=== PATIENT | male | born 1970 | race Caucasian/White ===

== ENCOUNTER 2017-09-23 05:09 | Inpatient (IN) | payer OTHER ==
[2017-09-23] MEDS: NS 1,000 ML IV ×4 (06:00→19:30)
[2017-09-23] MEDS: ONDANSETRON 4MG/2ML VIAL (J2405) IV (06:00)
[2017-09-23] MEDS: IPRATROPIUM 0.5MG/ALBUTEROL 2.5MG INH SOL UD 3ML (DUONEB)(J7620) NEB (06:12)
[2017-09-23 06:35] LABS: MEAN CORPUSCULAR HEMOGLOBIN 30.5 pg (27.0-33.0); MEAN CORPUSCULAR HGB CONC 34.4 g/dl (32.0-36.5); MEAN CORPUSCULAR VOLUME 88.6 fl (80.0-96.0); PLATELET COUNT, AUTOMATED 103 10^3/uL (150-450); RED CELL DISTRIBUTION WIDTH 14.5 % (11.5-14.5)
[2017-09-23 06:36] LABS: ADD MANUAL DIFFER YES; ATYP LYMPH POS FLAG; DIFF SLIDE NUMBER 97; POSITIVE MORPH POS FLAG
[2017-09-23 07:02] LABS: ALBUMIN 2.4 GM/DL (3.2-5.2); ALKALINE PHOSPHATASE 50 U/L (45-117); ALT/SGPT 52 U/L (12-78); AST/SGOT 140 U/L (7-37); BILIRUBIN,DIRECT 0.2 MG/DL (0.0-0.2); BILIRUBIN,TOTAL 0.4 MG/DL (0.2-1.0); BLOOD UREA NITROGEN 10 MG/DL (7-18); CALCIUM LEVEL 7.2 MG/DL (8.5-10.1); CARBON DIOXIDE LEVEL 25 MEQ/L (21-32); CHLORIDE LEVEL 99 MEQ/L (98-107); CREATININE FOR GFR 0.36 MG/DL (0.70-1.30); GLUCOSE, FASTING 97 MG/DL (70-105); POTASSIUM SERUM 3.6 MEQ/L (3.5-5.1); SODIUM LEVEL 133 MEQ/L (136-145); TOTAL PROTEIN 7.6 GM/DL (6.4-8.2)
[2017-09-23 07:04] LABS: LACTIC ACID SEPSIS PROTOCOL 1.8 MMOL/L (0.4-2.0)
[2017-09-23 07:10] LABS: GIANT PLATELETS 1+
[2017-09-23] MEDS ORDERED: ISOVUE-370 76% 100ML VIAL (Q9967) As Ordered (07:28)
[2017-09-23] MEDS: ACETAMINOPHEN TAB 650MG DOSE (2X325MG) PO (07:45)
[2017-09-23] MEDS: CEFTRIAXONE SOD 2 GM in APPROPRIATE DILUENT 1 EA IV (08:15)
[2017-09-23] MEDS: AZITHROMYCIN INJ 500 MG, VIAL MATE ADAPTER 1 EACH in D5W 250 ML IV (08:15)
[2017-09-23 08:21] LABS: KETONE, URINE AUTO RFX NEGATIVE (NEGATIVE); LEUKOCYTE ESTERASE UR AUTO RFX NEGATIVE (NEGATIVE); MUCUS, URINE RFX LARGE (NEGATIVE); NITRITE, URINE AUTO RFX NEGATIVE (NEGATIVE); RBC, URINE AUTO RFX 4 /HPF (0-3); SPECIFIC GRAVITY UR AUTO RFX 1.024 (1.002-1.035); SQUAM EPITHELIAL CELL UR AURFX 0 /HPF (0-6); WBC, URINE AUTO RFX 4 /HPF (0-3)
[2017-09-23 08:35] LABS: ANION GAP 9 MEQ/L (8-16)
[2017-09-23 08:36] LABS: ALBUMIN/GLOBULIN RATIO 0.96 (1.00-1.93)
[2017-09-23] MEDS: ENOXAPARIN 40 MG/0.4 ML SYRINGE (J1650) SC (09:00)
[2017-09-23] MEDS ORDERED: ACETAMINOPHEN TAB 650MG DOSE (2X325MG) PO (10:00)
[2017-09-23] MEDS: diphenhydrAMINE INJ 50MG/ML VIAL (J1200) IV (10:00)
[2017-09-23] MEDS ORDERED: ONDANSETRON 4MG/2ML VIAL (J2405) IV (10:00)
[2017-09-23] MEDS ORDERED: diphenhydrAMINE INJ 50MG/ML VIAL (J1200) IV (10:00)
[2017-09-23] MEDS ORDERED: ENOXAPARIN 60 MG/0.6 ML SYR (J1650) As Ordered (12:58)
[2017-09-23] MEDS: methylPREDNISolone INJ 40 MG/1 ML VIAL (J2920) IV ×2 (13:23→23:12)
[2017-09-23] MEDS: PIPERACILLIN/TAZOBACTAM SOD 4.5 GM in APPROPRIATE DILUENT 1 EA IV ×3 (13:23→23:12)
[2017-09-23] MEDS: NYSTATIN 100,000 UNITS/GM TOPICAL PWD 15 GM TOP (21:59)
[2017-09-24] MEDS ORDERED: ALBUTEROL SULFATE 2.5 MG/0.5 ML INH NEB SOLN NEB (04:15)
[2017-09-24] MEDS: IPRATROPIUM 0.5MG/ALBUTEROL 2.5MG INH SOL UD 3ML (DUONEB)(J7620) NEB ×2 (04:34→20:36)
[2017-09-24 04:51] LABS: MEAN CORPUSCULAR VOLUME 88.3 fl (80.0-96.0); RED CELL DISTRIBUTION WIDTH 14.6 % (11.5-14.5); WHITE BLOOD COUNT 4.9 10^3/uL (4.0-10.0)
[2017-09-24] MEDS: PIPERACILLIN/TAZOBACTAM SOD 4.5 GM in APPROPRIATE DILUENT 1 EA IV ×4 (05:03→23:07)
[2017-09-24 05:18] LABS: ANION GAP 5 MEQ/L (8-16); BLOOD UREA NITROGEN 9 MG/DL (7-18); CALCIUM LEVEL 7.1 MG/DL (8.5-10.1); CARBON DIOXIDE LEVEL 29 MEQ/L (21-32); CHLORIDE LEVEL 104 MEQ/L (98-107); CREATININE FOR GFR 0.28 MG/DL (0.70-1.30); GLOMERULAR FILTRATION RATE > 60.0 (>60); GLUCOSE, FASTING 121 MG/DL (70-105); POTASSIUM SERUM 3.5 MEQ/L (3.5-5.1); SODIUM LEVEL 138 MEQ/L (136-145)
[2017-09-24 05:43] LABS: ADD MANUAL DIFFER YES; ATYP LYMPH POS FLAG; BLASTS POS FLAG; DIFF SLIDE NUMBER 62; PLATELET COUNT, AUTOMATED 92 10^3/uL (150-450); POSITIVE MORPH POS FLAG
[2017-09-24 05:44] LABS: IMMATURE PLATELET FRACTION % 18.3 % (0.0-10.9)
[2017-09-24 05:48] LABS: BANDS 1 % (< 11)
[2017-09-24] MEDS: NYSTATIN 100,000 UNITS/GM TOPICAL PWD 15 GM TOP ×2 (08:12→20:58)
[2017-09-24] MEDS: AZITHROMYCIN INJ 500 MG, VIAL MATE ADAPTER 1 EACH in D5W 250 ML IV (08:12)
[2017-09-24] MEDS: NS 1,000 ML IV ×3 (08:27→17:51)
[2017-09-24] MEDS: ENOXAPARIN 40 MG/0.4 ML SYRINGE (J1650) SC (08:42)
[2017-09-24] MEDS ORDERED: INFLUENZA QUADRIVALENT PF VACCINE 0.5ML SYRINGE (90686) IM (09:00)
[2017-09-24] MEDS: methylPREDNISolone INJ 40 MG/1 ML VIAL (J2920) IV ×2 (12:21→23:07)
[2017-09-24] MEDS: SODIUM CHLORIDE 0.9% 1000 ML IV (16:45)
[2017-09-25] MEDS: NS 1,000 ML IV ×3 (00:54→17:24)
[2017-09-25 04:50] LABS: MEAN CORPUSCULAR HEMOGLOBIN 30.3 pg (27.0-33.0); MEAN CORPUSCULAR VOLUME 89.2 fl (80.0-96.0); RED CELL DISTRIBUTION WIDTH 14.6 % (11.5-14.5); WHITE BLOOD COUNT 5.1 10^3/uL (4.0-10.0)
[2017-09-25 04:51] LABS: ADD MANUAL DIFFER YES; ATYP LYMPH POS FLAG; DIFF SLIDE NUMBER 43; PLATELET COUNT, AUTOMATED 99 10^3/uL (150-450); POSITIVE MORPH POS FLAG
[2017-09-25 04:53] LABS: IMMATURE PLATELET FRACTION % 17.5 % (0.0-10.9)
[2017-09-25] MEDS: PIPERACILLIN/TAZOBACTAM SOD 4.5 GM in APPROPRIATE DILUENT 1 EA IV ×3 (05:01→18:35)
[2017-09-25 05:13] LABS: ANION GAP 9 MEQ/L (8-16); BLOOD UREA NITROGEN 8 MG/DL (7-18); CALCIUM LEVEL 6.5 MG/DL (8.5-10.1); CARBON DIOXIDE LEVEL 24 MEQ/L (21-32); CHLORIDE LEVEL 109 MEQ/L (98-107); CREATININE FOR GFR 0.26 MG/DL (0.70-1.30); GLOMERULAR FILTRATION RATE > 60.0 (>60); GLUCOSE, FASTING 126 MG/DL (70-105); POTASSIUM SERUM 3.3 MEQ/L (3.5-5.1); SODIUM LEVEL 142 MEQ/L (136-145)
[2017-09-25] MEDS: ENOXAPARIN 40 MG/0.4 ML SYRINGE (J1650) SC (08:50)
[2017-09-25] MEDS: NYSTATIN 100,000 UNITS/GM TOPICAL PWD 15 GM TOP ×2 (08:54→20:17)
[2017-09-25] MEDS: VANCOMYCIN HCL 1,000 MG, VIAL MATE ADAPTER 1 EACH in D5W 250 ML IV ×4 (08:54→22:28)
[2017-09-25] MEDS: POTASSIUM CHLORIDE 10 MEQ SR TABLET PO (08:54)
[2017-09-25] MEDS: GASTROGRAFIN SOLUTION 30ML PO (10:10)
[2017-09-25] MEDS: GASTROGRAFIN SOLUTION 30ML (Q9963) PO (10:40)
[2017-09-25] MEDS: CALCIUM GLUCONATE 1,000 MG in D5W MINI-BAG PLUS 100 ML IV (10:53)
[2017-09-25] MEDS: methylPREDNISolone INJ 40 MG/1 ML VIAL (J2920) IV ×2 (11:57→22:28)
[2017-09-25] MEDS: MAGNESIUM CITRATE 300 ML BTL PO (14:32)
[2017-09-25] MEDS: MOM 30ML SUSPENSION UDC PO ×2 (14:35→20:16)
[2017-09-25] MEDS: DOCUSATE SODIUM 100 MG CAP PO ×2 (14:35→20:16)
[2017-09-26] MEDS: PIPERACILLIN/TAZOBACTAM SOD 4.5 GM in APPROPRIATE DILUENT 1 EA IV ×5 (00:05→23:19)
[2017-09-26] MEDS: NS 1,000 ML IV ×5 (02:32→23:19)
[2017-09-26] MEDS: VANCOMYCIN HCL 1,000 MG, VIAL MATE ADAPTER 1 EACH in D5W 250 ML IV ×2 (04:16→10:43)
[2017-09-26 04:55] LABS: MEAN CORPUSCULAR HEMOGLOBIN 30.5 pg (27.0-33.0); MEAN CORPUSCULAR HGB CONC 34.1 g/dl (32.0-36.5); MEAN CORPUSCULAR VOLUME 89.3 fl (80.0-96.0); PLATELET COUNT, AUTOMATED 101 10^3/uL (150-450); RED CELL DISTRIBUTION WIDTH 14.7 % (11.5-14.5); WHITE BLOOD COUNT 4.6 10^3/uL (4.0-10.0)
[2017-09-26 05:09] LABS: ANION GAP 9 MEQ/L (8-16); BLOOD UREA NITROGEN 8 MG/DL (7-18); CALCIUM LEVEL 6.6 MG/DL (8.5-10.1); CARBON DIOXIDE LEVEL 24 MEQ/L (21-32); CHLORIDE LEVEL 111 MEQ/L (98-107); CREATININE FOR GFR 0.27 MG/DL (0.70-1.30); GLOMERULAR FILTRATION RATE > 60.0 (>60); GLUCOSE, FASTING 110 MG/DL (70-105); POTASSIUM SERUM 3.9 MEQ/L (3.5-5.1); SODIUM LEVEL 144 MEQ/L (136-145)
[2017-09-26 05:17] LABS: ADD MANUAL DIFFER YES; ATYP LYMPH POS FLAG; DIFF SLIDE NUMBER 48; POSITIVE MORPH POS FLAG
[2017-09-26] MEDS: ENOXAPARIN 40 MG/0.4 ML SYRINGE (J1650) SC (08:58)
[2017-09-26] MEDS: MOM 30ML SUSPENSION UDC PO ×2 (09:00→21:33)
[2017-09-26] MEDS: NYSTATIN 100,000 UNITS/GM TOPICAL PWD 15 GM TOP ×2 (09:00→21:33)
[2017-09-26] MEDS: DOCUSATE SODIUM 100 MG CAP PO ×2 (09:00→21:32)
[2017-09-26] MEDS: IPRATROPIUM 0.5MG/ALBUTEROL 2.5MG INH SOL UD 3ML (DUONEB)(J7620) NEB (10:38)
[2017-09-26] MEDS: methylPREDNISolone INJ 40 MG/1 ML VIAL (J2920) IV ×2 (10:42→23:19)
[2017-09-27 05:00] LABS: MEAN CORPUSCULAR HEMOGLOBIN 30.3 pg (27.0-33.0); MEAN CORPUSCULAR HGB CONC 33.9 g/dl (32.0-36.5); MEAN CORPUSCULAR VOLUME 89.2 fl (80.0-96.0); PLATELET COUNT, AUTOMATED 125 10^3/uL (150-450); RED CELL DISTRIBUTION WIDTH 14.7 % (11.5-14.5); WHITE BLOOD COUNT 4.3 10^3/uL (4.0-10.0)
[2017-09-27 05:04] LABS: ATYP LYMPH POS FLAG; POSITIVE MORPH POS FLAG
[2017-09-27 05:05] LABS: ADD MANUAL DIFFER YES; DIFF SLIDE NUMBER 31
[2017-09-27 05:29] LABS: ANION GAP 7 MEQ/L (8-16); BLOOD UREA NITROGEN 12 MG/DL (7-18); CALCIUM LEVEL 6.8 MG/DL (8.5-10.1); CARBON DIOXIDE LEVEL 24 MEQ/L (21-32); CHLORIDE LEVEL 114 MEQ/L (98-107); CREATININE FOR GFR 0.34 MG/DL (0.70-1.30); GLOMERULAR FILTRATION RATE > 60.0 (>60); GLUCOSE, FASTING 107 MG/DL (70-105); POTASSIUM SERUM 3.6 MEQ/L (3.5-5.1); SODIUM LEVEL 145 MEQ/L (136-145)
[2017-09-27] MEDS: PIPERACILLIN/TAZOBACTAM SOD 4.5 GM in APPROPRIATE DILUENT 1 EA IV (05:47)
[2017-09-27] MEDS: NS 1,000 ML IV ×3 (05:47→18:40)
[2017-09-27 05:51] LABS: ANISOCYTOSIS 1+
[2017-09-27] MEDS: DOCUSATE SODIUM 100 MG CAP PO ×2 (08:52→20:09)
[2017-09-27] MEDS: MOM 30ML SUSPENSION UDC PO ×2 (08:52→20:09)
[2017-09-27] MEDS: ENOXAPARIN 40 MG/0.4 ML SYRINGE (J1650) SC (08:58)
[2017-09-27] MEDS: NYSTATIN 100,000 UNITS/GM TOPICAL PWD 15 GM TOP ×2 (08:58→20:09)
[2017-09-27] MEDS: LevoFLOXacin 750 MG TABLET PO (10:41)
[2017-09-27] MEDS: methylPREDNISolone INJ 40 MG/1 ML VIAL (J2920) IV ×2 (10:41→22:13)
[2017-09-27] MEDS: IPRATROPIUM 0.5MG/ALBUTEROL 2.5MG INH SOL UD 3ML (DUONEB)(J7620) NEB (13:13)
[2017-09-28] MEDS: NS 1,000 ML IV (01:27)
[2017-09-28 05:22] LABS: MEAN CORPUSCULAR HEMOGLOBIN 30.9 pg (27.0-33.0); MEAN CORPUSCULAR HGB CONC 34.8 g/dl (32.0-36.5); PLATELET COUNT, AUTOMATED 145 10^3/uL (150-450); WHITE BLOOD COUNT 3.9 10^3/uL (4.0-10.0)
[2017-09-28 05:23] LABS: ATYP LYMPH POS FLAG; POSITIVE MORPH POS FLAG
[2017-09-28 05:24] LABS: ADD MANUAL DIFFER YES; DIFF SLIDE NUMBER 14
[2017-09-28 05:48] LABS: ANION GAP 7 MEQ/L (8-16); BLOOD UREA NITROGEN 11 MG/DL (7-18); CALCIUM LEVEL 6.9 MG/DL (8.5-10.1); CARBON DIOXIDE LEVEL 26 MEQ/L (21-32); CHLORIDE LEVEL 115 MEQ/L (98-107); GLOMERULAR FILTRATION RATE > 60.0 (>60); GLUCOSE, FASTING 125 MG/DL (70-105); POTASSIUM SERUM 3.6 MEQ/L (3.5-5.1); SODIUM LEVEL 148 MEQ/L (136-145)
[2017-09-28 05:51] LABS: ANISOCYTOSIS 1+
[2017-09-28] MEDS: LevoFLOXacin 750 MG TABLET PO (06:06)
[2017-09-28] MEDS: predniSONE 20 MG TAB PO (08:58)
[2017-09-28] MEDS: NYSTATIN 100,000 UNITS/GM TOPICAL PWD 15 GM TOP ×2 (08:59→20:47)
[2017-09-28] MEDS: MOM 30ML SUSPENSION UDC PO ×2 (08:59→20:27)
[2017-09-28] MEDS: DOCUSATE SODIUM 100 MG CAP PO ×2 (08:59→20:25)
[2017-09-28] MEDS: ENOXAPARIN 40 MG/0.4 ML SYRINGE (J1650) SC (08:59)
[2017-09-29 00:07] LABS: ORGANISM ID Not indicated. (.); SPECIMEN SOURCE Urine (.)
[2017-09-29 04:57] LABS: BASO % 0.2 % (0.0-1.0); EOS % 0.2 % (0.0-3.0); IMMATURE GRANULOCYTE % 0.7 % (0-0); LYMPH # 2.3 10^3/uL (1.5-4.5); LYMPH % 38.6 % (24.0-44.0); MEAN CORPUSCULAR HEMOGLOBIN 30.1 pg (27.0-33.0); MEAN CORPUSCULAR HGB CONC 33.6 g/dl (32.0-36.5); MEAN CORPUSCULAR VOLUME 89.5 fl (80.0-96.0); MONO # 1.2 10^3/uL (0.0-0.8); MONO % 19.7 % (0.0-5.0); NEUTROPHILS # 2.4 10^3/uL (1.8-7.7); NEUTROPHILS % 40.6 % (36.0-66.0); PLATELET COUNT, AUTOMATED 166 10^3/uL (150-450); RED CELL DISTRIBUTION WIDTH 14.8 % (11.5-14.5)
[2017-09-29 05:17] LABS: ANION GAP 7 MEQ/L (8-16); BLOOD UREA NITROGEN 13 MG/DL (7-18); CALCIUM LEVEL 7.1 MG/DL (8.5-10.1); CARBON DIOXIDE LEVEL 26 MEQ/L (21-32); CHLORIDE LEVEL 117 MEQ/L (98-107); GLOMERULAR FILTRATION RATE > 60.0 (>60); GLUCOSE, FASTING 80 MG/DL (70-105); SODIUM LEVEL 150 MEQ/L (136-145)
[2017-09-29] MEDS: POTASSIUM CHLORIDE 10 MEQ SR TABLET PO (05:31)
[2017-09-29] MEDS: LevoFLOXacin 750 MG TABLET PO (05:31)
[2017-09-29] MEDS: NYSTATIN 100,000 UNITS/GM TOPICAL PWD 15 GM TOP ×2 (08:28→21:00)
[2017-09-29] MEDS: predniSONE 20 MG TAB PO (08:28)
[2017-09-29] MEDS: D5W 1,000 ML IV (08:28)
[2017-09-29] MEDS: DOCUSATE SODIUM 100 MG CAP PO ×2 (08:39→20:08)
[2017-09-29] MEDS: ENOXAPARIN 40 MG/0.4 ML SYRINGE (J1650) SC (08:40)
[2017-09-29] MEDS: MOM 30ML SUSPENSION UDC PO ×2 (08:40→20:08)
[2017-09-29 12:38] LABS: ANION GAP 7 MEQ/L (8-16); BLOOD UREA NITROGEN 12 MG/DL (7-18); CALCIUM LEVEL 7.1 MG/DL (8.5-10.1); CARBON DIOXIDE LEVEL 28 MEQ/L (21-32); CHLORIDE LEVEL 114 MEQ/L (98-107); CREATININE FOR GFR 0.25 MG/DL (0.70-1.30); GLOMERULAR FILTRATION RATE > 60.0 (>60); GLUCOSE, FASTING 92 MG/DL (70-105); POTASSIUM SERUM 3.7 MEQ/L (3.5-5.1); SODIUM LEVEL 149 MEQ/L (136-145)
[2017-09-30] MEDS: LevoFLOXacin 750 MG TABLET PO (05:21)
[2017-09-30 05:41] LABS: BASO % 0.3 % (0.0-1.0); EOS % 0.6 % (0.0-3.0); IMMATURE GRANULOCYTE % 0.6 % (0-0); LYMPH # 2.4 10^3/uL (1.5-4.5); LYMPH % 35.3 % (24.0-44.0); MEAN CORPUSCULAR HGB CONC 33.8 g/dl (32.0-36.5); MEAN CORPUSCULAR VOLUME 88.9 fl (80.0-96.0); MONO % 14.9 % (0.0-5.0); NEUTROPHILS # 3.4 10^3/uL (1.8-7.7); NEUTROPHILS % 48.3 % (36.0-66.0); PLATELET COUNT, AUTOMATED 179 10^3/uL (150-450); RED CELL DISTRIBUTION WIDTH 14.8 % (11.5-14.5); WHITE BLOOD COUNT 6.9 10^3/uL (4.0-10.0)
[2017-09-30 06:06] LABS: ANION GAP 5 MEQ/L (8-16); BLOOD UREA NITROGEN 12 MG/DL (7-18); CARBON DIOXIDE LEVEL 30 MEQ/L (21-32); CHLORIDE LEVEL 113 MEQ/L (98-107); CREATININE FOR GFR 0.17 MG/DL (0.70-1.30); GLOMERULAR FILTRATION RATE > 60.0 (>60); GLUCOSE, FASTING 85 MG/DL (70-105); POTASSIUM SERUM 3.2 MEQ/L (3.5-5.1); SODIUM LEVEL 148 MEQ/L (136-145)
[2017-09-30] MEDS: POTASSIUM CHLORIDE 10 MEQ SR TABLET PO (08:06)
[2017-09-30] MEDS: predniSONE 20 MG TAB PO (08:06)
[2017-09-30] MEDS: ENOXAPARIN 40 MG/0.4 ML SYRINGE (J1650) SC (08:07)
[2017-09-30] MEDS: DOCUSATE SODIUM 100 MG CAP PO (08:07)
[2017-09-30] MEDS: NYSTATIN 100,000 UNITS/GM TOPICAL PWD 15 GM TOP (08:07)
[2017-09-30] MEDS: MOM 30ML SUSPENSION UDC PO (08:07)
== END 2017-09-30 15:00 | disposition home health service (06) | DRG 720 ==
LOC: M ED 05:09 → M ED INP 10:00 → M ICU 16:30
DX: A41.9 Sepsis, unspecified organism (principal); J18.9 Pneumonia, unspecified organism; G71.0 Muscular dystrophy; Z68.42 Body mass index [BMI] 45.0-49.9, adult; E66.01 Morbid (severe) obesity due to excess calories; J44.1 Chronic obstructive pulmonary disease with (acute) exacerbation; F17.210 Nicotine dependence, cigarettes, uncomplicated; L29.9 Pruritus, unspecified; K42.9 Umbilical hernia without obstruction or gangrene; G47.33 Obstructive sleep apnea (adult) (pediatric); Z99.3 Dependence on wheelchair

== ENCOUNTER 2021-09-09 18:22 | Inpatient (IN) | payer OTHER ==
[~2021-09-09] VITALS: Ht 185.4 cm; Wt 195.4 kg
[~2021-09-09 18:22] MED LIST: BACT2CRE; BACT400T; BACT800T5 PO; COLA100C5 PO; EUCECRE2 TOP; HYDR-3644 PO; LEVA750T7 PO; NICO21DI3 EXT; NYSTPOW PO; PERC7.5T12 PO; PRED10TA2 PO; PRIL20CA; PROV108A INH; SULF800T; VITA500047 PO
[2021-09-09] MEDS ORDERED: VANCOMYCIN HCL 1,000 MG in IV FLUID PLACE HOLDER 1 EA IV ONE (18:40)
[2021-09-09] MEDS ORDERED: VANCOMYCIN HCL 1,000 MG, VIAL MATE ADAPTER 1 EACH in NS 250 ML IV ONE ×2 (19:00→23:40)
[2021-09-09 20:42] LABS: HEMATOCRIT 51.9 % (42.0-52.0); HEMOGLOBIN 16.6 g/dl (13.5-17.5); MEAN CORPUSCULAR HEMOGLOBIN 30.5 pg (27.0-33.0); MEAN CORPUSCULAR VOLUME 95.4 fl (80.0-96.0); PLATELET COUNT, AUTOMATED 156 10^3/uL (150-450); RED BLOOD COUNT 5.44 10^6/uL (4.30-6.10); WHITE BLOOD COUNT 11.9 10^3/uL (4.0-10.0)
[2021-09-09] MEDS: LIDOCAINE 5% (LIDODERM) PATCH TD SCH (21:00)
[2021-09-09 21:02] LABS: BLOOD UREA NITROGEN 6 MG/DL (7-18); CALCIUM LEVEL 8.5 MG/DL (8.5-10.1); CARBON DIOXIDE LEVEL 25 MEQ/L (21-32); CHLORIDE LEVEL 108 MEQ/L (98-107); CREATININE FOR GFR 0.28 MG/DL (0.70-1.30); GLOMERULAR FILTRATION RATE > 60.0 (>56); GLUCOSE, FASTING 87 MG/DL (70-100); POTASSIUM SERUM 3.7 MEQ/L (3.5-5.1); SODIUM LEVEL 142 MEQ/L (136-145)
[2021-09-09] MEDS ORDERED: ISOVUE-370 76% 100ML VIAL As Ordered ONE (21:27)
[2021-09-09] MEDS ORDERED: ONDANSETRON 4MG/2ML VIAL IV ONE (22:35)
[2021-09-09] MEDS ORDERED: MORPHINE 4 MG/ML 1ML VIAL/SYRINGE (J2270) IV ONE (22:35)
[2021-09-09] MEDS ORDERED: IPRATROPIUM 0.5MG/ALBUTEROL 2.5MG INH SOL UD 3ML (DUONEB) NEB PRN (23:25)
[2021-09-09] MEDS ORDERED: ACETAMINOPHEN TAB 650MG DOSE (2X325MG) PO PRN (23:25)
[2021-09-09] MEDS ORDERED: HYDR-3490 PO (23:39)
[2021-09-09] MEDS ORDERED: HOME MED LIST COMPLETE! XX SCH (23:40)
[2021-09-10] MEDS ORDERED: MORPHINE 2 MG/ML 1ML VIAL (J2270) IV PRN (00:35)
[2021-09-10] MEDS ORDERED: ONDANSETRON 4MG/2ML VIAL IV PRN (00:35)
[2021-09-10 00:47] LABS: RSV AMPLIFICATION NEGATIVE (NEGATIVE)
[2021-09-10 02:49] VITALS: BP 126/89
[2021-09-10] MEDS: HEPARIN SOD (PORCINE) 5000UNITS/ML 1ML VIAL/SYRINGE SC SCH ×3 (06:00→21:21)
[2021-09-10 06:53] LABS: BASO # 0.1 10^3/uL (0.0-0.2); BASO % 0.6 % (0.0-1.0); EOS # 0.2 10^3/uL (0.0-0.5); EOS % 2.9 % (0.0-3.0); HEMATOCRIT 50.5 % (42.0-52.0); HEMOGLOBIN 16.1 g/dl (13.5-17.5); LYMPH # 1.8 10^3/uL (1.5-5.0); LYMPH % 21.4 % (24.0-44.0); MEAN CORPUSCULAR HEMOGLOBIN 30.3 pg (27.0-33.0); MEAN CORPUSCULAR HGB CONC 31.9 g/dl (32.0-36.5); MEAN CORPUSCULAR VOLUME 95.1 fl (80.0-96.0); MONO # 0.8 10^3/uL (0.0-0.8); MONO % 9.1 % (2.0-8.0); NEUTROPHILS # 5.5 10^3/uL (1.5-8.5); NEUTROPHILS % 65.8 % (36.0-66.0); PLATELET COUNT, AUTOMATED 192 10^3/uL (150-450); RED BLOOD COUNT 5.31 10^6/uL (4.30-6.10); WHITE BLOOD COUNT 8.4 10^3/uL (4.0-10.0)
[2021-09-10 07:20] LABS: BLOOD UREA NITROGEN 6 MG/DL (7-18); CALCIUM LEVEL 8.2 MG/DL (8.5-10.1); CARBON DIOXIDE LEVEL 29 MEQ/L (21-32); CHLORIDE LEVEL 108 MEQ/L (98-107); CREATININE FOR GFR 0.28 MG/DL (0.70-1.30); GLOMERULAR FILTRATION RATE > 60.0 (>56); GLUCOSE, FASTING 87 MG/DL (70-100); POTASSIUM SERUM 3.3 MEQ/L (3.5-5.1); SODIUM LEVEL 142 MEQ/L (136-145)
[2021-09-10] MEDS ORDERED: POTASSIUM CHLORIDE 10MEQ SR TABLET PO ONE (08:00)
[2021-09-10] MEDS: **NOTE PATIENT COMMENT** MISC XX SCH (09:00)
[2021-09-10] MEDS ORDERED: FLUBLOK(EGG FREE)(QUAD)INFLUENZA VACC 0.5ML SYRINGE 18YRS & OLDER IM ONE (09:00)
[2021-09-10] MEDS: carisoprodoL 350 MG TAB PO PRN (12:09)
[2021-09-10] MEDS: AUGMENTIN 875 MG TAB PO SCH ×2 (12:10→21:21)
[2021-09-10] MEDS: NORCO, ANEXSIA 5/325MG TABLET (HYDROcodone/ACETAMINOPHEN) PO PRN ×2 (12:11→19:00)
[2021-09-10] MEDS: DOXYCYCLINE HYCLATE 100MG TABLET PO SCH ×2 (12:14→21:21)
[2021-09-10] MEDS ORDERED: LIDOCAINE 1% MDV 20ML VIAL As Ordered ONE (13:46)
[2021-09-10 14:00] VITALS: BP 125/88
[2021-09-10] MEDS ORDERED: NYSTATIN 100,000 UNITS/GM TOPICAL PWD 15 GM TOP PRN (16:05)
[2021-09-10] MEDS: LIDOCAINE 5% (LIDODERM) PATCH TD SCH (21:22)
[2021-09-10 22:00] VITALS: BP 99/72
[2021-09-11] MEDS: NORCO, ANEXSIA 5/325MG TABLET (HYDROcodone/ACETAMINOPHEN) PO PRN ×3 (06:17→18:16)
[2021-09-11] MEDS: HEPARIN SOD (PORCINE) 5000UNITS/ML 1ML VIAL/SYRINGE SC SCH ×3 (06:18→21:33)
[2021-09-11 06:44] VITALS: BP 102/83
[2021-09-11 08:47] LABS: BASO # 0.1 10^3/uL (0.0-0.2); BASO % 0.7 % (0.0-1.0); EOS # 0.3 10^3/uL (0.0-0.5); EOS % 2.7 % (0.0-3.0); HEMATOCRIT 48.9 % (42.0-52.0); HEMOGLOBIN 15.1 g/dl (13.5-17.5); LYMPH # 1.7 10^3/uL (1.5-5.0); LYMPH % 17.8 % (24.0-44.0); MEAN CORPUSCULAR HEMOGLOBIN 29.8 pg (27.0-33.0); MEAN CORPUSCULAR HGB CONC 30.9 g/dl (32.0-36.5); MEAN CORPUSCULAR VOLUME 96.4 fl (80.0-96.0); MONO # 0.7 10^3/uL (0.0-0.8); MONO % 7.3 % (2.0-8.0); NEUTROPHILS # 6.9 10^3/uL (1.5-8.5); NEUTROPHILS % 71.2 % (36.0-66.0); PLATELET COUNT, AUTOMATED 171 10^3/uL (150-450); RED BLOOD COUNT 5.07 10^6/uL (4.30-6.10); WHITE BLOOD COUNT 9.8 10^3/uL (4.0-10.0)
[2021-09-11] MEDS: **NOTE PATIENT COMMENT** MISC XX SCH (09:00)
[2021-09-11 09:02] LABS: BLOOD UREA NITROGEN 8 MG/DL (7-18); CALCIUM LEVEL 8.2 MG/DL (8.5-10.1); CARBON DIOXIDE LEVEL 31 MEQ/L (21-32); CHLORIDE LEVEL 105 MEQ/L (98-107); CREATININE FOR GFR 0.32 MG/DL (0.70-1.30); GLOMERULAR FILTRATION RATE > 60.0 (>56); GLUCOSE, FASTING 105 MG/DL (70-100); POTASSIUM SERUM 3.6 MEQ/L (3.5-5.1); SODIUM LEVEL 140 MEQ/L (136-145)
[2021-09-11] MEDS: carisoprodoL 350 MG TAB PO PRN ×3 (10:26→21:30)
[2021-09-11] MEDS: DOXYCYCLINE HYCLATE 100MG TABLET PO SCH ×2 (10:28→21:30)
[2021-09-11] MEDS: AUGMENTIN 875 MG TAB PO SCH ×2 (10:28→21:30)
[2021-09-11] MEDS ORDERED: FLUCONAZOLE 50MG TABLET PO ONE (12:00)
[2021-09-11 14:00] VITALS: BP 106/73
[2021-09-11] MEDS: LIDOCAINE 5% (LIDODERM) PATCH TD SCH (21:30)
[2021-09-11 22:00] VITALS: BP 121/78
[2021-09-12] MEDS ORDERED: SODIUM CHLORIDE 0.9% INJ 10 ML SYR IV PRN (05:50)
[2021-09-12] MEDS: HEPARIN SOD (PORCINE) 5000UNITS/ML 1ML VIAL/SYRINGE SC SCH ×3 (05:56→21:05)
[2021-09-12] MEDS: SODIUM CHLORIDE 0.9% INJ 10 ML SYR IV SCH ×2 (05:56→18:33)
[2021-09-12] MEDS: NORCO, ANEXSIA 5/325MG TABLET (HYDROcodone/ACETAMINOPHEN) PO PRN ×3 (05:57→21:04)
[2021-09-12 06:00] VITALS: BP_SYST 121; BP_DIAS 78; BP_DIAS 80
[2021-09-12 09:14] LABS: BASO # 0.1 10^3/uL (0.0-0.2); BASO % 0.8 % (0.0-1.0); EOS # 0.3 10^3/uL (0.0-0.5); EOS % 3.5 % (0.0-3.0); HEMATOCRIT 46.3 % (42.0-52.0); HEMOGLOBIN 14.5 g/dl (13.5-17.5); LYMPH # 1.6 10^3/uL (1.5-5.0); LYMPH % 18.3 % (24.0-44.0); MEAN CORPUSCULAR HGB CONC 31.3 g/dl (32.0-36.5); MEAN CORPUSCULAR VOLUME 95.7 fl (80.0-96.0); MONO # 0.8 10^3/uL (0.0-0.8); MONO % 9.1 % (2.0-8.0); PLATELET COUNT, AUTOMATED 162 10^3/uL (150-450); RED BLOOD COUNT 4.84 10^6/uL (4.30-6.10); WHITE BLOOD COUNT 8.8 10^3/uL (4.0-10.0)
[2021-09-12 09:38] LABS: BLOOD UREA NITROGEN 9 MG/DL (7-18); CARBON DIOXIDE LEVEL 29 MEQ/L (21-32); CHLORIDE LEVEL 108 MEQ/L (98-107); CREATININE FOR GFR 0.19 MG/DL (0.70-1.30); GLOMERULAR FILTRATION RATE > 60.0 (>56); GLUCOSE, FASTING 88 MG/DL (70-100); POTASSIUM SERUM 3.2 MEQ/L (3.5-5.1); SODIUM LEVEL 142 MEQ/L (136-145)
[2021-09-12] MEDS: AUGMENTIN 875 MG TAB PO SCH ×2 (09:39→21:04)
[2021-09-12] MEDS: **NOTE PATIENT COMMENT** MISC XX SCH (09:39)
[2021-09-12] MEDS: DOXYCYCLINE HYCLATE 100MG TABLET PO SCH ×2 (09:39→21:04)
[2021-09-12] MEDS ORDERED: SENOKOT S TAB PO PRN (10:05)
[2021-09-12] MEDS ORDERED: MIRALAX *UNIT DOSE* 17GM PACKET PO PRN (10:05)
[2021-09-12] MEDS ORDERED: MOM 30ML SUSPENSION UDC PO PRN (10:05)
[2021-09-12] MEDS ORDERED: POTASSIUM CHLORIDE 10MEQ SR TABLET PO ONE (11:00)
[2021-09-12 14:00] VITALS: BP 127/83
[2021-09-12] MEDS: LIDOCAINE 5% (LIDODERM) PATCH TD SCH (21:04)
[2021-09-12 22:00] VITALS: BP 126/78
[2021-09-13 06:00] VITALS: BP 124/77
[2021-09-13] MEDS: HEPARIN SOD (PORCINE) 5000UNITS/ML 1ML VIAL/SYRINGE SC SCH ×3 (06:04→20:49)
[2021-09-13] MEDS: SODIUM CHLORIDE 0.9% INJ 10 ML SYR IV SCH ×2 (06:05→17:46)
[2021-09-13 07:19] LABS: BASO # 0.1 10^3/uL (0.0-0.2); BASO % 0.8 % (0.0-1.0); EOS # 0.4 10^3/uL (0.0-0.5); EOS % 5.2 % (0.0-3.0); HEMATOCRIT 44.8 % (42.0-52.0); HEMOGLOBIN 14.2 g/dl (13.5-17.5); LYMPH # 1.8 10^3/uL (1.5-5.0); LYMPH % 24.9 % (24.0-44.0); MEAN CORPUSCULAR HEMOGLOBIN 30.2 pg (27.0-33.0); MEAN CORPUSCULAR HGB CONC 31.7 g/dl (32.0-36.5); MEAN CORPUSCULAR VOLUME 95.3 fl (80.0-96.0); MONO # 0.8 10^3/uL (0.0-0.8); MONO % 10.3 % (2.0-8.0); NEUTROPHILS # 4.3 10^3/uL (1.5-8.5); NEUTROPHILS % 58.4 % (36.0-66.0); PLATELET COUNT, AUTOMATED 165 10^3/uL (150-450); WHITE BLOOD COUNT 7.3 10^3/uL (4.0-10.0)
[2021-09-13 07:38] LABS: BLOOD UREA NITROGEN 9 MG/DL (7-18); CALCIUM LEVEL 7.8 MG/DL (8.5-10.1); CARBON DIOXIDE LEVEL 31 MEQ/L (21-32); CHLORIDE LEVEL 106 MEQ/L (98-107); CREATININE FOR GFR 0.18 MG/DL (0.70-1.30); GLOMERULAR FILTRATION RATE > 60.0 (>56); GLUCOSE, FASTING 86 MG/DL (70-100); POTASSIUM SERUM 3.7 MEQ/L (3.5-5.1); SODIUM LEVEL 143 MEQ/L (136-145)
[2021-09-13] MEDS: DOXYCYCLINE HYCLATE 100MG TABLET PO SCH ×2 (08:59→20:49)
[2021-09-13] MEDS: AUGMENTIN 875 MG TAB PO SCH ×2 (08:59→20:49)
[2021-09-13] MEDS: **NOTE PATIENT COMMENT** MISC XX SCH (09:00)
[2021-09-13 14:00] VITALS: BP 122/77
[2021-09-13] MEDS: NORCO, ANEXSIA 5/325MG TABLET (HYDROcodone/ACETAMINOPHEN) PO PRN (15:04)
[2021-09-13] MEDS: LIDOCAINE 5% (LIDODERM) PATCH TD SCH (20:50)
[2021-09-14] MEDS: NORCO, ANEXSIA 5/325MG TABLET (HYDROcodone/ACETAMINOPHEN) PO PRN ×2 (01:21→16:38)
[2021-09-14] MEDS: HEPARIN SOD (PORCINE) 5000UNITS/ML 1ML VIAL/SYRINGE SC SCH ×3 (05:39→21:05)
[2021-09-14] MEDS: SODIUM CHLORIDE 0.9% INJ 10 ML SYR IV SCH ×2 (05:40→16:39)
[2021-09-14 06:00] VITALS: BP 127/76
[2021-09-14 07:02] LABS: BASO # 0.1 10^3/uL (0.0-0.2); BASO % 0.9 % (0.0-1.0); EOS # 0.4 10^3/uL (0.0-0.5); EOS % 5.2 % (0.0-3.0); HEMATOCRIT 44.7 % (42.0-52.0); HEMOGLOBIN 14.4 g/dl (13.5-17.5); LYMPH # 2.1 10^3/uL (1.5-5.0); LYMPH % 27.5 % (24.0-44.0); MEAN CORPUSCULAR HGB CONC 32.2 g/dl (32.0-36.5); MEAN CORPUSCULAR VOLUME 93.1 fl (80.0-96.0); MONO # 0.9 10^3/uL (0.0-0.8); MONO % 11.3 % (2.0-8.0); NEUTROPHILS # 4.2 10^3/uL (1.5-8.5); NEUTROPHILS % 54.7 % (36.0-66.0); PLATELET COUNT, AUTOMATED 173 10^3/uL (150-450); WHITE BLOOD COUNT 7.7 10^3/uL (4.0-10.0)
[2021-09-14 07:24] LABS: BLOOD UREA NITROGEN 8 MG/DL (7-18); CALCIUM LEVEL 7.7 MG/DL (8.5-10.1); CARBON DIOXIDE LEVEL 32 MEQ/L (21-32); CHLORIDE LEVEL 104 MEQ/L (98-107); CREATININE FOR GFR 0.17 MG/DL (0.70-1.30); GLOMERULAR FILTRATION RATE > 60.0 (>56); GLUCOSE, FASTING 85 MG/DL (70-100); POTASSIUM SERUM 3.7 MEQ/L (3.5-5.1); SODIUM LEVEL 140 MEQ/L (136-145)
[2021-09-14] MEDS: **NOTE PATIENT COMMENT** MISC XX SCH (09:03)
[2021-09-14] MEDS: AUGMENTIN 875 MG TAB PO SCH ×2 (09:03→21:05)
[2021-09-14] MEDS: DOXYCYCLINE HYCLATE 100MG TABLET PO SCH ×2 (09:03→21:05)
[2021-09-14] MEDS: LIDOCAINE 5% (LIDODERM) PATCH TD SCH (21:05)
[2021-09-15 06:00] VITALS: BP 115/72
[2021-09-15] MEDS: SODIUM CHLORIDE 0.9% INJ 10 ML SYR IV SCH ×2 (06:01→18:09)
[2021-09-15] MEDS: HEPARIN SOD (PORCINE) 5000UNITS/ML 1ML VIAL/SYRINGE SC SCH ×3 (06:02→21:26)
[2021-09-15 06:37] LABS: BASO # 0.1 10^3/uL (0.0-0.2); BASO % 0.6 % (0.0-1.0); EOS # 0.3 10^3/uL (0.0-0.5); EOS % 3.7 % (0.0-3.0); HEMATOCRIT 43.5 % (42.0-52.0); HEMOGLOBIN 14.2 g/dl (13.5-17.5); LYMPH # 1.8 10^3/uL (1.5-5.0); LYMPH % 20.7 % (24.0-44.0); MEAN CORPUSCULAR HGB CONC 32.6 g/dl (32.0-36.5); MEAN CORPUSCULAR VOLUME 91.8 fl (80.0-96.0); MONO # 0.9 10^3/uL (0.0-0.8); MONO % 10.2 % (2.0-8.0); NEUTROPHILS # 5.4 10^3/uL (1.5-8.5); NEUTROPHILS % 64.3 % (36.0-66.0); PLATELET COUNT, AUTOMATED 168 10^3/uL (150-450); RED BLOOD COUNT 4.74 10^6/uL (4.30-6.10); WHITE BLOOD COUNT 8.5 10^3/uL (4.0-10.0)
[2021-09-15 07:02] LABS: BLOOD UREA NITROGEN 8 MG/DL (7-18); CALCIUM LEVEL 7.9 MG/DL (8.5-10.1); CARBON DIOXIDE LEVEL 29 MEQ/L (21-32); CHLORIDE LEVEL 104 MEQ/L (98-107); CREATININE FOR GFR 0.17 MG/DL (0.70-1.30); GLOMERULAR FILTRATION RATE > 60.0 (>56); GLUCOSE, FASTING 81 MG/DL (70-100); POTASSIUM SERUM 3.7 MEQ/L (3.5-5.1); SODIUM LEVEL 141 MEQ/L (136-145)
[2021-09-15] MEDS: **NOTE PATIENT COMMENT** MISC XX SCH (09:00)
[2021-09-15] MEDS: DOXYCYCLINE HYCLATE 100MG TABLET PO SCH ×2 (09:18→21:25)
[2021-09-15] MEDS: AUGMENTIN 875 MG TAB PO SCH ×2 (09:18→21:24)
[2021-09-15] MEDS: NORCO, ANEXSIA 5/325MG TABLET (HYDROcodone/ACETAMINOPHEN) PO PRN ×2 (09:19→21:25)
[2021-09-15] MEDS: LIDOCAINE 5% (LIDODERM) PATCH TD SCH (21:25)
[2021-09-16] MEDS: HEPARIN SOD (PORCINE) 5000UNITS/ML 1ML VIAL/SYRINGE SC SCH ×3 (05:09→20:32)
[2021-09-16] MEDS: SODIUM CHLORIDE 0.9% INJ 10 ML SYR IV SCH ×2 (05:09→18:03)
[2021-09-16 07:05] VITALS: BP 100/54
[2021-09-16 08:44] LABS: BASO # 0.1 10^3/uL (0.0-0.2); BASO % 0.9 % (0.0-1.0); EOS # 0.3 10^3/uL (0.0-0.5); EOS % 3.7 % (0.0-3.0); HEMATOCRIT 44.2 % (42.0-52.0); HEMOGLOBIN 14.4 g/dl (13.5-17.5); LYMPH # 2.3 10^3/uL (1.5-5.0); LYMPH % 26.5 % (24.0-44.0); MEAN CORPUSCULAR HGB CONC 32.6 g/dl (32.0-36.5); MEAN CORPUSCULAR VOLUME 92.1 fl (80.0-96.0); MONO # 0.9 10^3/uL (0.0-0.8); MONO % 10.2 % (2.0-8.0); NEUTROPHILS # 5.1 10^3/uL (1.5-8.5); PLATELET COUNT, AUTOMATED 171 10^3/uL (150-450); WHITE BLOOD COUNT 8.7 10^3/uL (4.0-10.0)
[2021-09-16 09:01] LABS: BLOOD UREA NITROGEN 10 MG/DL (7-18); CALCIUM LEVEL 8.2 MG/DL (8.5-10.1); CARBON DIOXIDE LEVEL 30 MEQ/L (21-32); CHLORIDE LEVEL 104 MEQ/L (98-107); CREATININE FOR GFR 0.18 MG/DL (0.70-1.30); GLOMERULAR FILTRATION RATE > 60.0 (>56); GLUCOSE, FASTING 83 MG/DL (70-100); SODIUM LEVEL 141 MEQ/L (136-145)
[2021-09-16] MEDS: **NOTE PATIENT COMMENT** MISC XX SCH (09:38)
[2021-09-16] MEDS: AUGMENTIN 875 MG TAB PO SCH ×2 (09:38→20:31)
[2021-09-16] MEDS: DOXYCYCLINE HYCLATE 100MG TABLET PO SCH ×2 (09:38→20:31)
[2021-09-16] MEDS: NORCO, ANEXSIA 5/325MG TABLET (HYDROcodone/ACETAMINOPHEN) PO PRN ×2 (14:07→20:31)
[2021-09-16] MEDS: LIDOCAINE 5% (LIDODERM) PATCH TD SCH (20:31)
[2021-09-17] MEDS: HEPARIN SOD (PORCINE) 5000UNITS/ML 1ML VIAL/SYRINGE SC SCH ×3 (05:29→20:36)
[2021-09-17] MEDS: SODIUM CHLORIDE 0.9% INJ 10 ML SYR IV SCH ×2 (05:30→17:47)
[2021-09-17 06:00] VITALS: BP 102/58
[2021-09-17] MEDS: AUGMENTIN 875 MG TAB PO SCH ×2 (08:15→20:36)
[2021-09-17] MEDS: DOXYCYCLINE HYCLATE 100MG TABLET PO SCH ×2 (08:15→20:37)
[2021-09-17] MEDS: **NOTE PATIENT COMMENT** MISC XX SCH (08:15)
[2021-09-17] MEDS: NORCO, ANEXSIA 5/325MG TABLET (HYDROcodone/ACETAMINOPHEN) PO PRN ×2 (08:22→20:39)
[2021-09-17] MEDS ORDERED: LIDO5TD TD (15:19)
[2021-09-17] MEDS ORDERED: AMOX875T2 PO (15:19)
[2021-09-17] MEDS ORDERED: HYDR-3715 PO ×2 (15:19→15:23)
[2021-09-17] MEDS ORDERED: DOXY100T PO (15:19)
[2021-09-17] MEDS: LIDOCAINE 5% (LIDODERM) PATCH TD SCH (20:37)
[2021-09-18] MEDS: SODIUM CHLORIDE 0.9% INJ 10 ML SYR IV SCH ×2 (04:42→17:13)
[2021-09-18] MEDS: HEPARIN SOD (PORCINE) 5000UNITS/ML 1ML VIAL/SYRINGE SC SCH ×2 (04:43→14:00)
[2021-09-18 06:00] VITALS: BP 105/65
[2021-09-18] MEDS: AUGMENTIN 875 MG TAB PO SCH ×2 (08:42→19:01)
[2021-09-18] MEDS: DOXYCYCLINE HYCLATE 100MG TABLET PO SCH ×2 (08:43→19:01)
[2021-09-18] MEDS: **NOTE PATIENT COMMENT** MISC XX SCH (09:00)
[2021-09-18] MEDS: NORCO, ANEXSIA 5/325MG TABLET (HYDROcodone/ACETAMINOPHEN) PO PRN (12:59)
[2021-09-18 14:00] VITALS: BP 105/67
== END 2021-09-18 19:00 | disposition home health service (06) | DRG 340 ==
LOC: EDBD 18:22 → M ED 18:22 → M ED INP 23:23 → ENRESERV 09-10 00:21 → M MS5PR 09-10 01:45
PROVIDERS: ADMIT Family Medicine; ATTEND Internal Medicine
PROC: 05HB33Z Insertion of Infusion Device into Right Basilic Vein, Percutaneous Approach (ICD-10-PCS; principal; 2021-09-10 15:30)
DX: S72.002A Fracture of unspecified part of neck of left femur, initial encounter for closed fracture (principal); G71.00 Muscular dystrophy, unspecified; Z68.43 Body mass index [BMI] 50.0-59.9, adult; D69.6 Thrombocytopenia, unspecified; E66.01 Morbid (severe) obesity due to excess calories; F44.4 Conversion disorder with motor symptom or deficit; F17.200 Nicotine dependence, unspecified, uncomplicated; K42.9 Umbilical hernia without obstruction or gangrene; S73.192A Other sprain of left hip, initial encounter; R21 Rash and other nonspecific skin eruption; B96.5 Pseudomonas (aeruginosa) (mallei) (pseudomallei) as the cause of diseases classified elsewhere; N49.2 Inflammatory disorders of scrotum; B96.4 Proteus (mirabilis) (morganii) as the cause of diseases classified elsewhere; B95.8 Unspecified staphylococcus as the cause of diseases classified elsewhere; Z74.1 Need for assistance with personal care; Z74.01 Bed confinement status; Y93.89 Activity, other specified; Y92.009 Unspecified place in unspecified non-institutional (private) residence as the place of occurrence of the external cause; W50.2XXA Accidental twist by another person, initial encounter; Z20.822 Contact with and (suspected) exposure to COVID-19; Z79.899 Other long term (current) drug therapy; Y99.8 Other external cause status

== ENCOUNTER → 2021-12-22 | Outpatient (CLI) | payer OTHER ==
[~2021-12-22] MED LIST changes: +AMOX875T2 PO; +DOXY100T PO; +HYDR-3490 PO; +HYDR-3715 PO; +LIDO5TD TD
== END ==
LOC: M RAD 11:18
PROVIDERS: ATTEND Orthopaedic Surgery Adult Reconstructive Orthopaedic Surgery
DX: M84.359A Stress fracture, hip, unspecified, initial encounter for fracture (principal)